=== PATIENT | female | born 1965 | race Caucasian/White ===

== ENCOUNTER 2016-12-04 17:43 | Emergency (ER) | payer MEDICAID ==
[2016-12-04 18:21] LABS: BILIRUBIN,URINE NEGATIVE (NEGATIVE)
[2016-12-04 18:24] LABS: HCG UR QUAL NEGATIVE; UA CHARGE (STRIP ONLY) YES; UR CULTURE IF IND NOT INDICATED
--- NOTE | 2016-12-04 18:30 | ED Physician Documentation ---
PD HPI ABD PAIN - Stated complaint Stated Complaint: ABD/BACK PX - Chief complaint Chief Complaint: Abd Pain - History obtained from History obtained from: Patient - History of Present Illness Timing - onset: Other (Long standing epigastric pain worse p eating, worse in the last 3 weeks. Increased with greasy foods. 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, Tubal ligation - Present Medications Home Medications: Ambulatory Orders Medication Instructions Recorded Confirmed Levothyroxine Sodium [Levoxyl] 175 mcg PO DAILY 01/12/14 12/04/16 Omeprazole [PriLOSEC] 20 mg PO DAILY 01/12/14 12/04/16 amLODIPine [Norvasc] 10 mg PO DAILY 12/04/16 12/04/16 - Allergies Allergies/Adverse Reactions: Allergies Allergy/AdvReac Type Severity Reaction Status Date / Time varenicline tartrate * Allergy Unknown Verified 12/04/16 17:49 [From Chantix] - Social History Does the pt smoke?: Yes Smoking Status: Current every day smoker Does the pt drink ETOH?: No Does the pt have substance abuse?: No - Family History Family history: reports: Non contributory - Immunizations Immunizations are current?: Yes - POLST Patient has POLST: No PD ED PE NORMAL - Vitals Vital signs reviewed: Yes - General General: Alert and oriented X 3, No acute distress - HEENT HEENT: PERRL, EOMI - Neck Neck: Supple, no meningeal sign, No bony TTP - Cardiac Cardiac: RRR, No murmur - Respiratory Respiratory: No respiratory distress, Clear bilaterally - Abdomen Abdomen: Soft, Other (Mild RUQ TTP, equivocal murphys) - Back Back: No CVA TTP, No spinal TTP - Derm Derm: Normal color, Warm and dry - Extremities Extremities: No edema, No calf tenderness / cord - Neuro Neuro: Alert and oriented X 3, Normal speech - Psych Psych: Normal mood, Normal affect Results - Vitals Vitals: Vital Signs - 24 hr 12/04/16 12/04/16 17:46 19:15 Temperature 36.9 C Heart Rate 80 78 Respiratory 20 18 Rate Blood Pressure 136/94 H 148/72 H O2 Saturation 98 97 Oxygen O2 Source Room air - Labs Labs: Laboratory Tests 12/04/16 12/04/16 12/04/16 17:59 18:57 18:57 WBC 9.8 RBC 4.87 Hgb 15.2 Hct 44.3 MCV 90.8 MCH 31.2 H MCHC 34.3 RDW 14.4 Plt Count 256 MPV 7.8 L Neut # 6.3 Lymph # 2.7 [place] # 0.6 Eos # 0.1 Baso # 0.1 Absolute Nucleated RBC 0.00 Nucleated RBCs 0.0 Sodium 139 Potassium 3.9 Chloride 105 Carbon Dioxide 28 Anion Gap 6.0 BUN 7 Creatinine 0.6 Estimated GFR (MDRD) 106 Glucose 95 Calcium 9.5 Total Bilirubin 0.6 AST 17 ALT 11 Alkaline Phosphatase 76 Total Protein 7.6 Albumin 4.4 Globulin 3.2 Albumin/Globulin Ratio 1.4 Lipase 32 Urine Color YELLOW Urine Clarity CLEAR Urine pH 6.0 Ur Specific Duarte 1.010 Urine Protein NEGATIVE Urine Glucose (UA) NEGATIVE Urine Ketones NEGATIVE Urine Occult Blood NEGATIVE Urine Nitrite NEGATIVE Urine Bilirubin NEGATIVE Urine Urobilinogen 0.2 (NORMAL) Ur Leukocyte Esterase NEGATIVE Ur Microscopic Review NOT INDICATED Urine Culture Comments NOT INDICATED Urine HCG, Qual NEGATIVE PD MEDICAL DECISION MAKING - ED course ED course: 51-year-old woman with almost chronic right upper quadrant [place] epigastric pain consistent with either gastritis or biliary colic, she does have a single gallstone on ultrasound with no evidence of cholecystitis. Surgical follow-up was advised. Departure - Departure Disposition: 01 Home, Self Care Clinical Impression: Biliary colic Condition: Good Record reviewed to determine appropriate education?: Yes Instructions: ED Gallstone W Biliary Colic Follow-Up: CHUNG HWANG MD [Provider Admit Priv/Credential] - Comments: Your blood pressure was elevated today on check into the emergency department. This does not mean that you have hypertension, it is a common phenomenon to come to the emergency department and have elevated blood pressure. I recommend that she see her primary care physician within the week to have it rechecked when you are feeling better.
[2016-12-04 19:04] LABS: BASOPHILS # (AUTO) 0.1 10^3/uL (0.0-0.1); BASOPHILS % (AUTO) 0.8 %; EOSINOPHILS # (AUTO) 0.1 10^3/uL (0.0-0.7); EOSINOPHILS % (AUTO) 1.2 %; HCT - HEMATOCRIT 44.3 % (37.0-47.0); HGB - HEMOGLOBIN 15.2 g/dL (12.0-16.0); LYMPHOCYTES # (AUTO) 2.7 10^3/uL (1.5-3.5); LYMPHOCYTES % (AUTO) 27.9 %; MEAN CORPUSCULAR HEMOGLOBIN 31.2 pg (27.0-31.0); MEAN CORPUSCULAR HGB CONC 34.3 g/dL (32.0-36.0); MEAN CORPUSCULAR VOLUME 90.8 fL (81.0-99.0); MEAN PLATELET VOLUME 7.8 fL (7.9-10.8); MONOCYTES # (AUTO) 0.6 10^3/uL (0.0-1.0); MONOCYTES % (AUTO) 5.7 %; NEUTROPHILS # (AUTO) 6.3 10^3/uL (1.5-6.6); NEUTROPHILS % (AUTO) 64.4 %; RED BLOOD COUNT 4.87 10^6/uL (4.20-5.40); RED CELL DISTRIBUTION WIDTH 14.4 % (12.0-15.0); UNCORRECTED WHITE BLOOD COUNT 9.8 x10^3/uL; WHITE BLOOD COUNT 9.8 x10^3/uL (4.8-10.8)
[2016-12-04 19:16] VITALS: BP 148/72
[2016-12-04 19:20] LABS: ALBUMIN/GLOBULIN RATIO 1.4 (1.0-2.2); BILIRUBIN,TOTAL 0.6 mg/dL (0.2-1.0); CALCIUM 9.5 mg/dL (8.5-10.3); CREATININE 0.6 mg/dL (0.4-1.0); POTASSIUM 3.9 mmol/L (3.5-5.0); TOTAL PROTEIN 7.6 g/dL (6.7-8.2)
--- NOTE | 2016-12-04 19:23 | Ultrasound Preliminary Report ---
Exam: US Abdomen Limited IMPRESSION: 1. Increasing fatty infiltration liver. 2. Cholelithiasis without evidence of cholecystitis. [facility] SITE ID: [id number]
--- NOTE | 2016-12-04 19:39 | Ultrasound Report ---
EXAM: ABDOMEN ULTRASOUND LIMITED, RIGHT UPPER QUADRANT EXAM DATE: 12/04/2016 06:24 PM. CLINICAL HISTORY: Hepatitis B. Episode of right upper quadrant pain earlier today, now resolved. COMPARISON: 03/12/2016. TECHNIQUE: Real-time scanning was performed with static images obtained. FINDINGS: Liver: Increasing degree of uniform increased echogenicity. No focal mass lesions. 16.7 cm. Main port al vein flow: Hepatopetal. Gallbladder: Gallbladder normal caliber. New 8 mm mobile stone. No gallbladder wall thickness, focal tenderness nor pericholecystic fluid. Biliary System: CBD measures 4.6 mm. No intrahepatic or extrahepatic ductal dilatation. Other: Right kidney measures 11.2 cm in length. No masses nor hydronephrosis. No free fluid. IMPRESSION: 1. Increasing fatty infiltration of the liver. 2. Cholelithiasis without evidence of cholecystitis. [facility] Referring Provider Line: [phone] SITE ID: [id number]
== END 2016-12-04 19:50 | disposition home or self-care (01) ==
LOC: ED 17:43
DX: K80.50 Calculus of bile duct without cholangitis or cholecystitis without obstruction (principal); I10 Essential (primary) hypertension; C73 Malignant neoplasm of thyroid gland; F17.200 Nicotine dependence, unspecified, uncomplicated
CPT/HCPCS: 36415; 76705; 80053; 81001; 81003; 81025; 83690; 85025; 87086; 99283

== ENCOUNTER 2016-12-27 14:35 | Outpatient (CLI) | payer MEDICAID ==
--- NOTE | 2016-12-27 18:02 | XRAY Report ---
FRONTAL CHEST: 12/27/2016 CLINICAL INDICATION: Coronary artery disease, preop. Frontal view of the chest is compared to previous film of 10/30/2013. The cardiac silhouette is with in normal limits. The lungs are clear. No effusion or pneumothorax is present. IMPRESSION: NORMAL CHEST. JOB #: [id number] EXT JOB #:[id number]
== END 2016-12-27 14:36 | disposition home or self-care (01) ==
LOC: DI 14:35
PROVIDERS: ATTEND Nurse Anesthetist, Certified Registered
DX: Z79.899 Other long term (current) drug therapy (principal)
CPT/HCPCS: 71010

== ENCOUNTER 2016-12-31 09:08 | Day surgery (SDC) | payer MEDICAID ==
[~2016-12-31 09:08] MED LIST: ceFAZolin 2 GM/50 ML 50 ML IV ONE
[2016-12-31 09:38] LABS: HCG UR QUAL NEGATIVE
[2016-12-31] MEDS ORDERED: LACTATED RINGERS 1,000 ML IV ONE ×2 (09:39→12:33)
[2016-12-31] MEDS ORDERED: BUPIVACAINE 0.5% PF 30 ML VIAL SUBQ ONE ×2 (12:04→13:02)
[2016-12-31] MEDS ORDERED: LIDOCAINE-MPF 2% 5 ML VIAL IM ONE (12:27)
[2016-12-31] MEDS ORDERED: fentaNYL 100 MCG/2 ML VIAL IVP ONE (12:27)
[2016-12-31] MEDS ORDERED: GLYCOPYRROLATE 1 MG/5 ML VIAL IVP ONE (12:27)
[2016-12-31] MEDS ORDERED: MIDAZOLAM 2 MG/2 ML VIAL IVP ONE (12:27)
[2016-12-31] MEDS ORDERED: PROPOFOL 200 MG/20 ML VIAL IVP ONE (12:27)
[2016-12-31] MEDS ORDERED: SUCCINYLCHOLINE 200 MG/10 ML VIAL IVP ONE (12:27)
[2016-12-31] MEDS ORDERED: DEXAMETHASONE 4 MG/ML VIAL IVP ONE (12:27)
[2016-12-31] MEDS ORDERED: KETOROLAC 30 MG/ML VIAL IVP ONE (12:27)
[2016-12-31] MEDS ORDERED: ROCURONIUM 50 MG/5 ML VIAL IVP ONE (12:27)
[2016-12-31] MEDS ORDERED: NEOSTIGMINE 1 MG/1 ML 10 ML MDV IVP ONE (12:27)
--- NOTE | 2016-12-31 14:17 | OPERATIVE REPORT ---
DATE OF SURGERY: 12/31/2016 00:00:00 TIME: 1315 PREOPERATIVE DIAGNOSES 1. Symptomatic cholelithiasis. 2. Umbilical hernia. 3. Hepatitis B. POSTOPERATIVE DIAGNOSES 1. Symptomatic cholelithiasis. 2. Umbilical hernia. 3. Hepatitis B. NAME OF PROCEDURES: Laparoscopic cholecystectomy with umbilical herniorrhaphy and Ambrocio-Cut liver biops y. SURGEON: Mati Rios MD ANESTHESIA: Last (general endotracheal) plus 30 mL of 0.5% Marcaine. ESTIMATED BLOOD LOSS: 20 mL. FLUIDS: 1200 mL of crystalloid. SPECIMEN REMOVED: Gallbladder and contents, as well as liver biopsy. Both were sent for pathologic ev aluation. DETAILS OF PROCEDURE: After informed consent was obtained detailing the risks of infection, bleeding with all its risks including transfusion, bile duct injury, and , the patient was brought to the operative suite and placed supine on the operating table. The patient received preoperative antibiot ics for prophylaxis against surgical infection. The patient had TEDs and Venodynes placed for prophyl axis against deep venous thrombosis. Philip Last then provided general anesthesia to the patient wi [facility] incident and provided anesthesia care throughout the entirety of the case. The patient was prep ped and draped in the usual standard manner. At this point, a time-in was done that confirmed the pat ient's identity via 3 different identifiers including her name, medical record number, and date . In addition, we confirmed her allergies, medications, and that we had the personnel and equipment r equired to perform the procedure. Ample opportunity was given for anyone to express any concerns that they had regarding the patient or the patient's care. With the agreement of everyone in the room, [facility] operation was allowed to proceed. A standard umbilical incision was made and dissection was carried down to the fascial defect using a combination of sharp dissection with the scalpel, as well as Bovie electrocautery. The hernia sac was excised, but not sent for pathologic evaluation. The fat that was in the hernia was simply discarded after it was transected using Bovie electrocautery. Through the opening was placed the 10/12 mm blun t-tipped balloon-tipped cannula, and the balloon inflated to hold it in place. The abdomen was then i nsufflated using carbon dioxide to a steady pressure of 15 mmHg. Three additional ports were placed, one in the subxiphoid position and 2 in the right subcostal position at the anterior axillary line, a s well as midclavicular line, all under direct vision without incident. The gallbladder was noted to be quite floppy, it was grasped and retracted superiorly and laterally to the right side. The structu res in the triangle of Calot were dissected free. The cystic duct was noted anteriorly and was freed of any sort of adherent tissue. This was doubly clipped proximally and distally and transected. A madhu tograph was taken of this. Photograph was also taken of the gallbladder prior to any surgical dissect ion. The cystic artery was found slightly posterior to the cystic duct. Similarly clipped and transec kobe. The gallbladder was then dissected free from the liver bed using Bovie electrocautery. The gallb ladder fossa was cauterized using Bovie electrocautery for hemostatic control. Under direct vision, t he Endopouch was placed through the umbilical port and the gallbladder was placed into the Endopouch. The pursestring of the Endopouch was pulled tight securing the gallbladder within the Endopouch. A small stab incision was made in the right upper quadrant and a Ambrocio-Cut needle biopsy device was lars chad through this and placed into the liver under direct vision. It had already been tested by me to aime gonzalez that it would work appropriately. This was then fired getting a core of liver, which was instan tly cauterized using Bovie electrocautery. The right upper quadrant was copiously irrigated using war m sterile saline. The effluent did return rather clear. The insufflation was then released and the um bilical port balloon deflated and the port was removed, as was the bag containing the gallbladder. Al l 3 other ports were removed. The fascia at the umbilicus was then approximated using 0 Vicryl suture in a [id number] fashion. Two dadjyp-cp-oeegf sutures were used, thus repairing her umbilical he rnia. The skin at all 4 incisions was approximated using 4-0 Monocryl in a subcuticular fashion. The small stab incision in the right upper quadrant did not require a stitch as it was too small. The ski n was cleaned of its prep and dried. Mastisol and Steri-Strips were applied on all incisions. Dressin gs were applied over this and the patient, having tolerated the procedure well, was extubated and gaston en to recovery room in good and stable condition. JOB #: [id number] [id number] JOB #:[id number]
[2016-12-31 15:38] VITALS: BP 138/78
== END 2016-12-31 09:09 | disposition home or self-care (01) ==
LOC: SDS 09:08
PROVIDERS: ATTEND Surgery
PROC: 0FB00ZX Excision of Liver, Open Approach, Diagnostic (ICD-10-PCS; 2016-12-31)
PROC: 0FT44ZZ Resection of Gallbladder, Percutaneous Endoscopic Approach (ICD-10-PCS; principal; 2016-12-31 10:15)
PROC: 0WQF0ZZ Repair Abdominal Wall, Open Approach (ICD-10-PCS; 2016-12-31 10:15)
DX: K80.10 Calculus of gallbladder with chronic cholecystitis without obstruction (principal); K42.9 Umbilical hernia without obstruction or gangrene; B19.10 Unspecified viral hepatitis B without hepatic coma; K76.0 Fatty (change of) liver, not elsewhere classified; I10 Essential (primary) hypertension; F17.210 Nicotine dependence, cigarettes, uncomplicated; E03.9 Hypothyroidism, unspecified; Z85.850 Personal history of malignant neoplasm of thyroid
CPT/HCPCS: 47100; 47562; 49585; 81025; J0690; J7120

== ENCOUNTER 2017-04-18 08:42 | Outpatient (CLI) | payer MEDICAID ==
[2017-04-18 12:26] LABS: BASOPHILS # (AUTO) 0.1 10^3/uL (0.0-0.1); EOSINOPHILS # (AUTO) 0.2 10^3/uL (0.0-0.7); EOSINOPHILS % (AUTO) 2.2 %; HCT - HEMATOCRIT 43.1 % (37.0-47.0); HGB - HEMOGLOBIN 14.6 g/dL (12.0-16.0); LYMPHOCYTES # (AUTO) 2.2 10^3/uL (1.5-3.5); LYMPHOCYTES % (AUTO) 25.9 %; MEAN CORPUSCULAR HEMOGLOBIN 31.2 pg (27.0-31.0); MEAN CORPUSCULAR HGB CONC 33.8 g/dL (32.0-36.0); MEAN CORPUSCULAR VOLUME 92.3 fL (81.0-99.0); MEAN PLATELET VOLUME 8.4 fL (7.9-10.8); MONOCYTES # (AUTO) 0.4 10^3/uL (0.0-1.0); NEUTROPHILS # (AUTO) 5.5 10^3/uL (1.5-6.6); NEUTROPHILS % (AUTO) 65.9 %; RED BLOOD COUNT 4.67 10^6/uL (4.20-5.40); RED CELL DISTRIBUTION WIDTH 13.9 % (12.0-15.0); UNCORRECTED WHITE BLOOD COUNT 8.3 x10^3/uL; WHITE BLOOD COUNT 8.3 x10^3/uL (4.8-10.8)
[2017-04-18 12:44] LABS: ALBUMIN/GLOBULIN RATIO 1.2 (1.0-2.2); BILIRUBIN,TOTAL 0.6 mg/dL (0.2-1.0); BUN - BLOOD UREA NITROGEN 9 mg/dL (6-20); CALCIUM 9.2 mg/dL (8.5-10.3); CARBON DIOXIDE - CO2 26 mmol/L (21-32); CHLORIDE 106 mmol/L (101-111); CHOL/HDL RATIO 2.8 (<4.4); CHOLESTEROL 170 mg/dL; CREATININE 0.7 mg/dL (0.4-1.0); GFR - MDRD 89 (>89); GLUCOSE 100 mg/dL (70-100); HDL CHOLESTEROL 61 mg/dL; LDL/HDL RATIO 1.4 (<4.4); POTASSIUM 3.7 mmol/L (3.5-5.0); SODIUM 139 mmol/L (135-145); TOTAL PROTEIN 7.3 g/dL (6.7-8.2); TRIGLYCERIDES 107 mg/dL; VLDL CHOLESTEROL 21 mg/dL
== END 2017-04-18 08:43 | disposition home or self-care (01) ==
LOC: LAB.N 08:42
PROVIDERS: ATTEND Physician Assistant Medical
DX: I10 Essential (primary) hypertension (principal); B19.10 Unspecified viral hepatitis B without hepatic coma; D64.9 Anemia, unspecified; E89.0 Postprocedural hypothyroidism; E78.5 Hyperlipidemia, unspecified
CPT/HCPCS: 36415; 80053; 80061; 84443; 85025

== ENCOUNTER 2017-05-07 07:28 | Outpatient (CLI) | payer MEDICAID ==
--- NOTE | 2017-05-07 09:13 | Ultrasound Report ---
EXAM: ABDOMEN ULTRASOUND EXAM DATE: 05/07/2017 07:35 AM. CLINICAL HISTORY: Abdomen pain, history of hiatal hernia, status post lap jacky. COMPARISON: Right upper quadrant ultrasound 12/04/2016. Complete abdominal ultrasound 03/12/2016. TECHNIQUE: Real-time scanning was performed with static images obtained. FINDINGS: Liver: Diffuse increased echogenicity again demonstrated consistent with fatty infiltration. No focal abnormality. Normal size, right lobe length 16.4 cm. Main portal vein flow: Hepatopetal. Gallbladder: Surgically absent. Biliary System: Common bile duct measures 4.3 mm. No intrahepatic or extrahepatic ductal dilatation. Pancreas: Evidence of pancreatic ductal dilatation measuring 4.6 mm. This was not evident on 03/12/20 16. Low-level echoes in the apparent dilated duct could be artifactual in nature although debris or c omplex fluid is not excluded. No other abraham pancreatic abnormality within the visualized portion the pancreas. Kidneys: Right: 10.7 cm longitudinally. Normal. No contour-deforming mass, stones, or hydronephrosis. Left: 10.8 cm longitudinally. 1.5 cm upper pole benign appearing cyst. No contour-deforming mass, sto kim, or hydronephrosis. Spleen: 8.3 cm. Normal in size and echotexture. Aorta and Inferior Vena Cava: Unremarkable. Other: No free fluid demonstrated. IMPRESSION: 1. Evidence of new pancreatic ductal dilatation, as discussed above. Further evaluation by MRI/MRCP i s recommended. Alternatively, pancreatic protocol CT imaging with and without contrast could be perfo rmed. 2. Benign left renal cyst. 3. Fatty infiltration liver redemonstrated. 4. Status post cholecystectomy. VANNESA Referring Provider Line: [phone] SITE ID: [id number]
== END 2017-05-07 07:29 | disposition home or self-care (01) ==
LOC: DI 07:28
PROVIDERS: ATTEND Physician Assistant Medical
DX: R10.9 Unspecified abdominal pain (principal); Z87.19 Personal history of other diseases of the digestive system; Z90.49 Acquired absence of other specified parts of digestive tract; R19.7 Diarrhea, unspecified; N28.1 Cyst of kidney, acquired; K76.0 Fatty (change of) liver, not elsewhere classified
CPT/HCPCS: 76700

== ENCOUNTER 2017-05-14 08:00 | Outpatient (CLI) | payer MEDICAID ==
[2017-05-14 19:17] LABS: AMYLASE 119 U/L (28-100); LIPASE 112 U/L (22-51)
== END 2017-05-14 08:01 | disposition home or self-care (01) ==
LOC: LAB.N 08:00
PROVIDERS: ATTEND Physician Assistant Medical
DX: Z87.19 Personal history of other diseases of the digestive system (principal); R10.11 Right upper quadrant pain; Z90.49 Acquired absence of other specified parts of digestive tract
CPT/HCPCS: 36415; 82150; 83690

== ENCOUNTER 2017-08-08 19:21 | Outpatient (CLI) | payer MEDICAID ==
[2017-08-08 19:35] LABS: BASOPHILS # (AUTO) 0.1 10^3/uL (0.0-0.1); BASOPHILS % (AUTO) 0.7 %; EOSINOPHILS # (AUTO) 0.1 10^3/uL (0.0-0.7); EOSINOPHILS % (AUTO) 1.4 %; HGB - HEMOGLOBIN 14.3 g/dL (12.0-16.0); LYMPHOCYTES # (AUTO) 3.2 10^3/uL (1.5-3.5); LYMPHOCYTES % (AUTO) 31.2 %; MEAN CORPUSCULAR HEMOGLOBIN 30.4 pg (27.0-31.0); MEAN CORPUSCULAR HGB CONC 33.5 g/dL (32.0-36.0); MEAN CORPUSCULAR VOLUME 90.8 fL (81.0-99.0); MEAN PLATELET VOLUME 7.9 fL (7.9-10.8); MONOCYTES # (AUTO) 0.4 10^3/uL (0.0-1.0); MONOCYTES % (AUTO) 4.3 %; NEUTROPHILS # (AUTO) 6.3 10^3/uL (1.5-6.6); NEUTROPHILS % (AUTO) 62.4 %; PLT - PLATELET COUNT 323 10^3/uL (130-450); RED BLOOD COUNT 4.71 10^6/uL (4.20-5.40); RED CELL DISTRIBUTION WIDTH 13.9 % (12.0-15.0); WHITE BLOOD COUNT 10.1 x10^3/uL (4.8-10.8)
[2017-08-08 19:48] LABS: ALBUMIN 4.2 g/dL (3.2-5.5); ALBUMIN/GLOBULIN RATIO 1.2 (1.0-2.2); ALKALINE PHOSPHATASE 77 IU/L (42-121); ALT ALANINE AMINOTRANSFERASE 12 IU/L (10-60); AMYLASE 98 U/L (28-100); AST ASPARTATE AMINOTRANSFERASE 15 IU/L (10-42); BILIRUBIN,TOTAL < 0.2 mg/dL (0.2-1.0); BUN - BLOOD UREA NITROGEN 7 mg/dL (6-20); CALCIUM 9.3 mg/dL (8.5-10.3); CARBON DIOXIDE - CO2 28 mmol/L (21-32); CHLORIDE 102 mmol/L (101-111); CREATININE 0.6 mg/dL (0.4-1.0); GFR - MDRD 106 (>89); GLUCOSE 136 mg/dL (70-100); LIPASE 88 U/L (22-51); SODIUM 139 mmol/L (135-145); TOTAL PROTEIN 7.7 g/dL (6.7-8.2)
== END 2017-08-08 19:22 | disposition home or self-care (01) ==
LOC: LAB 19:21
PROVIDERS: ATTEND Physician Assistant Medical
DX: K85.80 Other acute pancreatitis without necrosis or infection (principal); K86.89 Other specified diseases of pancreas; R10.9 Unspecified abdominal pain
CPT/HCPCS: 36415; 80053; 82150; 83690; 85025

== ENCOUNTER 2017-09-23 08:00 | Outpatient (CLI) | payer MEDICAID ==
[2017-09-23 19:15] LABS: HEMOGLOBIN A1C 0.64 g/dL; HEMOGLOBIN A1C % 5.8 % (4.6-6.2)
== END 2017-09-23 08:01 | disposition home or self-care (01) ==
LOC: LAB.N 08:00
PROVIDERS: ATTEND Physician Assistant Medical
DX: K86.1 Other chronic pancreatitis (principal)
CPT/HCPCS: 36415; 83036

== ENCOUNTER 2017-10-19 11:36 | Emergency (ER) | payer MEDICAID ==
[2017-10-19 12:18] LABS: BASOPHILS # (AUTO) 0.1 10^3/uL (0.0-0.1); BASOPHILS % (AUTO) 0.8 %; EOSINOPHILS # (AUTO) 0.1 10^3/uL (0.0-0.7); EOSINOPHILS % (AUTO) 1.1 %; HGB - HEMOGLOBIN 14.7 g/dL (12.0-16.0); LYMPHOCYTES # (AUTO) 2.1 10^3/uL (1.5-3.5); MEAN CORPUSCULAR HEMOGLOBIN 31.1 pg (27.0-31.0); MEAN CORPUSCULAR HGB CONC 34.6 g/dL (32.0-36.0); MEAN CORPUSCULAR VOLUME 89.8 fL (81.0-99.0); MEAN PLATELET VOLUME 7.6 fL (7.9-10.8); MONOCYTES # (AUTO) 0.4 10^3/uL (0.0-1.0); MONOCYTES % (AUTO) 4.9 %; NEUTROPHILS # (AUTO) 6.1 10^3/uL (1.5-6.6); NEUTROPHILS % (AUTO) 69.2 %; PLT - PLATELET COUNT 293 10^3/uL (130-450); RED BLOOD COUNT 4.74 10^6/uL (4.20-5.40); RED CELL DISTRIBUTION WIDTH 14.1 % (12.0-15.0); WHITE BLOOD COUNT 8.8 x10^3/uL (4.8-10.8)
[2017-10-19 12:31] LABS: ALBUMIN 4.1 g/dL (3.2-5.5); ALBUMIN/GLOBULIN RATIO 1.1 (1.0-2.2); BILIRUBIN,TOTAL 0.7 mg/dL (0.2-1.0); CALCIUM 9.4 mg/dL (8.5-10.3); CREATININE 0.5 mg/dL (0.4-1.0); TOTAL PROTEIN 7.7 g/dL (6.7-8.2)
--- NOTE | 2017-10-19 12:46 | ED Physician Documentation ---
PD HPI ABD PAIN - Stated complaint Stated Complaint: ABD PX - Chief complaint Chief Complaint: Abd Pain - History obtained from History obtained from: Patient - History of Present Illness Timing - onset: How many weeks ago (has had pancreatic pain since CC last fall , and had pancreatic stricture. Had seen GI in [place] with ERCP but no stent or such. Is referred to and has MRCP Saturday and ERCP with hopefully stent next Saturday. Has had increased pain lately for past 1-2 weeks. Was at [facility] ER this past week and she says Lipase was 400s. Was not admitted.) Timing - duration: Weeks, Months Timing - details: Gradual onset, Waxing and waning Quality: Cramping, Aching, Pain Location: RUQ, Epigastric Radiation: Upper back Improved by: No: Eating, Vomiting Worsened by: Eating, Position, Palpation. No: Breathing Associated symptoms: Nausea, Vomiting, Diarrhea. No: Fever, Near syncope / syncope Similar symptoms before: Diagnosis (pancreatitis s/p CCY) Recently seen: Emergency Dept ([facility] several days ago) Review of Systems Constitutional: denies: Fever, Chills, Myalgias Nose: denies: Rhinorrhea / runny nose, Congestion Throat: denies: Sore throat Cardiac: denies: Chest pain / pressure, Palpitations Respiratory: denies: Dyspnea, Cough GI: reports: Abdominal Pain, Nausea, Vomiting, Diarrhea. 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, Tubal ligation - Present Medications Home Medications: Ambulatory Orders Medication Instructions Recorded Confirmed Levothyroxine Sodium [Levoxyl] 125 mcg PO DAILY 01/12/14 12/31/16 amLODIPine [Norvasc] 10 mg PO DAILY 12/04/16 10/19/17 Dicyclomine HCl 10 mg PO QID 10/19/17 10/19/17 Docusate Sodium 100 mg PO DAILY 10/19/17 10/19/17 Famotidine [Pepcid] 20 mg PO ONCE #30 tablet 10/19/17 HYDROcod/ACETAM 5/325 [[place] 5/325] 1 tab PO Q6H PRN #25 tablet 10/19/17 Lidocaine Viscous 2% [Xylocaine 5 ml PO Q4H PRN #1 bottle 10/19/17 Viscous 2%] Ondansetron Odt [Zofran] 4 mg TL Q6H PRN #15 tablet 10/19/17 Ondansetron [Ondansetron Odt] 4 mg PO QID 10/19/17 10/19/17 Senna [Senokot] 8.6 mg PO DAILY 10/19/17 10/19/17 - Allergies Allergies/Adverse Reactions: Allergies Allergy/AdvReac Type Severity Reaction Status Date / Time varenicline tartrate * Allergy Unknown Verified 10/19/17 11:44 [From Chantix] lisinopril AdvReac Intermediate Unknown Verified 10/19/17 11:44 - Social History Does the pt smoke?: Yes Smoking Status: Current every day smoker Does the pt drink ETOH?: No Does the pt have substance abuse?: No - Immunizations Immunizations are current?: Yes - POLST Patient has POLST: No PD ED PE NORMAL - Vitals Vital signs reviewed: Yes - General General: Alert and oriented X 3, Well developed/nourished - HEENT HEENT: Moist mucous membranes, Pharynx benign - Neck Neck: Supple, no meningeal sign, No adenopathy - Cardiac Cardiac: RRR, No murmur - Respiratory Respiratory: Clear bilaterally - Abdomen Abdomen: Normal bowel sounds, Non distended, No organomegaly, Other (tender epigastric area with guarding) - Female Female : Deferred - Rectal Rectal: Deferred - Back Back: No CVA TTP - Derm Derm: Normal color, Warm and dry - Extremities Extremities: No tenderness to palpate, Normal ROM s pain - Neuro Neuro: Alert and oriented X 3, No motor deficit, Normal speech Results - Vitals Vitals: Vital Signs - 24 hr 10/19/17 10/19/17 10/19/17 11:42 12:33 14:46 Temperature 36.5 C 36.7 C 98.6 C H Heart Rate 82 77 67 Respiratory 18 12 12 Rate Blood Pressure 121/83 H 115/87 H 139/87 H O2 Saturation 99 98 100 Oxygen O2 Source Room air - Labs Labs: Laboratory Tests 10/19/17 10/19/17 12:05 12:05 WBC 8.8 RBC 4.74 Hgb 14.7 Hct 42.6 MCV 89.8 MCH 31.1 H MCHC 34.6 RDW 14.1 Plt Count 293 MPV 7.6 L Neut # (Auto) 6.1 Lymph # (Auto) 2.1 [place] # (Auto) 0.4 Eos # (Auto) 0.1 Baso # (Auto) 0.1 Absolute Nucleated RBC 0.00 Nucleated RBC % 0.0 Sodium 139 Potassium 2.9 L Chloride 104 Carbon Dioxide 25 Anion Gap 10.0 BUN 10 Creatinine 0.5 Estimated GFR (MDRD) 131 Glucose 181 H Calcium 9.4 Total Bilirubin 0.7 AST 24 ALT 25 Alkaline Phosphatase 86 Total Protein 7.7 Albumin 4.1 Globulin 3.6 Albumin/Globulin Ratio 1.1 Lipase 82 H PD MEDICAL DECISION MAKING - ED course Complexity details: re-evaluated patient (Pain is down to bseline 5-10/27. She got some redness at the IV site after meds but no general symptoms, so likely local histamine effect of the Morphine. We talked and agreed on combination of meds including some pain meds to take her to her ERCP at in 8 days. I did review her ZAHIRA and had been getting just small Rx of meds from just her primary care and not multiple sources, so seemed reasonable at this point. ), considered differential (her numbers are improved so the pain may be gastric as well. Mild improvement with GI meds. ), d/w patient Departure - Departure Disposition: 01 Home, Self Care Clinical Impression: Upper abdominal pain, Acute on chronic pancreatitis Condition: Stable Record reviewed to determine appropriate education?: Yes Instructions: Abdominal Pain, ED Pancreatitis Follow-Up: Berry Tang PA-C [Primary Care Provider] - Prescriptions: Famotidine [Pepcid] 20 mg PO ONCE #30 tablet HYDROcod/ACETAM 5/325 [[place] 5/325] 1 tab PO Q6H PRN #25 tablet PRN Reason: Pain Lidocaine Viscous 2% [Xylocaine Viscous 2%] 5 ml PO Q4H PRN #1 bottle PRN Reason: Pain Ondansetron Odt [Zofran] 4 mg TL Q6H PRN #15 tablet PRN Reason: Nausea / Vomiting Comments: Drink lots of fluids. Food as tolerated. Your lipase today is lower at 82 than what she said it was last week. Your pain may still be pancreatic pain and inflammation despite a lowering number. However consider whether there may be some stomach irritation as well. He could use famotidine which is an acid reducing medicine antihistamine and does not associate with pancreatitis. Do not use Prilosec or acid reducing medicines of that category. He could do some viscous lidocaine periodically with antacid if that helps with the pain. Ondansetron if needed for nausea. Add Tylenol or hydrocodone 3 times a day if needed for pain. This will obviously not eliminate your pain but should reduce it to a tolerable level. Have your MR CP test done tomorrow as planned and follow-up with the for ERCP next Saturday as planned. Return or follow-up with your primary care in the interim if worsening. Discharge Date/Time: 10/19/17 15:49
[2017-10-19] MEDS ORDERED: KETOROLAC 15 MG/ML VIAL IVP STA (13:07)
[2017-10-19] MEDS ORDERED: SODIUM CHLORIDE 0.9% 1,000 ML IV ONE ×2 (13:07→13:09)
[2017-10-19] MEDS ORDERED: ONDANSETRON 4 MG/2 ML VIAL IVP STA (13:07)
[2017-10-19] MEDS ORDERED: MORPHINE 10 MG/ML VIAL IVP STA (13:07)
[2017-10-19] MEDS ORDERED: FAMOTIDINE 20 MG/50 ML 50 ML IV ONE (13:09)
[2017-10-19] MEDS ORDERED: LIDOCAINE VISCOUS 2% 15 ML UDC MM STA (13:10)
[2017-10-19] MEDS ORDERED: MAG HYDROX/AL HYDROX/SIMETH 30 ML UDC PO STA (13:10)
[2017-10-19] MEDS ORDERED: diphenhydrAMINE INJ 50 MG/ML VIAL IVP STA (14:01)
[2017-10-19 14:47] VITALS: BP 139/87
== END 2017-10-19 15:49 | disposition home or self-care (01) ==
LOC: ED 11:36
DX: R10.11 Right upper quadrant pain (principal); K85.90 Acute pancreatitis without necrosis or infection, unspecified; K86.1 Other chronic pancreatitis; I10 Essential (primary) hypertension; F17.200 Nicotine dependence, unspecified, uncomplicated
CPT/HCPCS: 36415; 80053; 83690; 85025; 96361; 96365; 96375; 99283; 99284; A9270; J1200

== ENCOUNTER 2017-11-12 10:21 | Outpatient (CLI) | payer MEDICAID | END 2017-11-12 10:22 | disposition home or self-care (01) | LOC: LAB 10:21 | PROVIDERS: ATTEND Nurse Practitioner | DX: C25.1 Malignant neoplasm of body of pancreas (principal) | CPT/HCPCS: 36415; 83835 ==

== ENCOUNTER 2018-01-27 15:44 | Outpatient (CLI) | payer MEDICAID ==
[2018-01-27 16:02] LABS: CALCIUM 8.6 mg/dL (8.5-10.3); CREATININE 0.5 mg/dL (0.4-1.0)
== END 2018-01-27 15:45 | disposition home or self-care (01) ==
LOC: LAB 15:44
DX: C34.92 Malignant neoplasm of unspecified part of left bronchus or lung (principal)
CPT/HCPCS: 36415; 80048

== ENCOUNTER 2018-03-04 11:15 | Outpatient (CLI) | payer MEDICAID | END 2018-03-04 11:16 | disposition home or self-care (01) | LOC: LAB 11:15 | PROVIDERS: ATTEND Internal Medicine Medical Oncology | DX: C34.92 Malignant neoplasm of unspecified part of left bronchus or lung (principal) | CPT/HCPCS: 36415; 84132 ==

== ENCOUNTER 2018-04-09 10:38 | Outpatient (CLI) | payer MEDICAID ==
[2018-04-09 11:32] LABS: BASOPHILS % (AUTO) 0.6 %; EOSINOPHILS % (AUTO) 0.1 %; HGB - HEMOGLOBIN 9.2 g/dL (12.0-16.0); LYMPHOCYTES # (AUTO) 0.5 10^3/uL (1.5-3.5); LYMPHOCYTES % (AUTO) 12.5 %; MEAN CORPUSCULAR HEMOGLOBIN 27.1 pg (27.0-31.0); MEAN CORPUSCULAR HGB CONC 33.8 g/dL (32.0-36.0); MEAN CORPUSCULAR VOLUME 80.2 fL (81.0-99.0); MEAN PLATELET VOLUME 6.2 fL (7.9-10.8); MONOCYTES # (AUTO) 0.1 10^3/uL (0.0-1.0); MONOCYTES % (AUTO) 3.3 %; NEUTROPHILS # (AUTO) 3.4 10^3/uL (1.5-6.6); NEUTROPHILS % (AUTO) 83.5 %
[2018-04-09 11:44] LABS: PLT - PLATELET COUNT 800 10^3/uL (130-450)
[2018-04-09 11:47] LABS: PLATELET ESTIMATE, MANUAL INCREASED (>450,000) (NORMAL)
== END 2018-04-09 10:39 | disposition home or self-care (01) ==
LOC: LAB 10:38
PROVIDERS: ATTEND Nurse Practitioner
DX: C34.92 Malignant neoplasm of unspecified part of left bronchus or lung (principal)
CPT/HCPCS: 36415; 85025

== ENCOUNTER 2018-04-22 11:27 | Day surgery (SDC) | payer MEDICAID ==
[2018-04-22 11:49] VITALS: BP 144/94
--- NOTE | 2018-04-22 14:32 | XRAY Report ---
Reason: picc line placement Procedure Date: 04/22/2018 Accession Number: [id number] / [id number] Procedure: XR - Chest for Line Placement CPT Code: FULL RESULT: EXAM: CHEST RADIOGRAPHY EXAM DATE: 04/22/2018 01:55 PM. CLINICAL HISTORY: Picc line placement. COMPARISON: 10/30/2013 3:04 PM. TECHNIQUE: 1 view. FINDINGS: Lungs/Pleura: No focal opacities evident. No pleural effusion. No pneumothorax. Mediastinum: Within exam limitations, the cardiomediastinal contour is normal. Other: There is a left upper extremity PICC line with tip overlying the inferior vena cava located approximately 8 cm inferior to the cavoatrial junction. At time of dictation, follow-up radiograph had been obtained. IMPRESSION: Low lying PICC line with tip inferior vena cava. RAD[facility]
--- NOTE | 2018-04-22 14:32 | XRAY Report ---
Reason: s/p PICC line Procedure Date: 04/22/2018 Accession Number: [id number] / [id number] Procedure: XR - Chest for Line Placement CPT Code: FULL RESULT: EXAM: CHEST RADIOGRAPHY EXAM DATE: 04/22/2018 01:57 PM. CLINICAL HISTORY: S/p PICC line. Repositioning of central line. COMPARISON: CHEST FOR LINE PLACEMENT 04/22/2018 1:55 PM CHEST FOR LINE PLACEMENT 04/22/2018 1:58 PM. TECHNIQUE: 1 view. FINDINGS: Lungs/Pleura: No focal opacities evident. No pleural effusion. No pneumothorax. Mediastinum: Within exam limitations, the cardiomediastinal contour is normal. Other: The left upper extremity PICC line tip overlies cavoatrial junction. IMPRESSION: Left PICC line tip at cavoatrial junction. RADIA
--- NOTE | 2018-04-22 14:33 | XRAY Report ---
Reason: s/p PICC line Procedure Date: 04/22/2018 Accession Number: [id number] / [id number] Procedure: XR - Chest for Line Placement CPT Code: FULL RESULT: EXAM: CHEST RADIOGRAPHY EXAM DATE: 04/22/2018 01:58 PM. CLINICAL HISTORY: Repositioning of PICC line COMPARISON: CHEST FOR LINE PLACEMENT 04/22/2018 1:57 PM. TECHNIQUE: 1 view. FINDINGS: Lungs/Pleura: No focal opacities evident. No pleural effusion. No pneumothorax. Mediastinum: Within exam limitations, the cardiomediastinal contour is normal. Other: The left upper extremity PICC line has been pulled back. The tip overlies the lower SVC. IMPRESSION: Left PICC line tip at lower SVC. RADIA
--- NOTE | 2018-04-22 14:48 | ANESTHESIA PROCEDURE NOTE ---
Anesth Central Line Template - Central Line Other Info/Details: picc line placed for chemothetapy using sterile tecnique with sterile full body drape,mask ,cap, gown and gloves a five slovak picc line was placed in the left arm after preparing the site with chloraprep. The catheter was cut to 48 cm with ten cm pulled back from the entry into the skin. so the catheter has 38 cm in from the skin. the placement was confirmed with a chest x-ray.
== END 2018-04-22 11:28 | disposition home or self-care (01) ==
LOC: SDS 11:27
PROVIDERS: ATTEND Nurse Anesthetist, Certified Registered
PROC: 02HV33Z Insertion of Infusion Device into Superior Vena Cava, Percutaneous Approach (ICD-10-PCS; principal; 2018-04-22 12:30)
DX: C34.90 Malignant neoplasm of unspecified part of unspecified bronchus or lung (principal)
CPT/HCPCS: 36569; C1751; 71045

== ENCOUNTER 2018-09-19 07:46 | Outpatient (CLI) | payer MEDICAID ==
[2018-09-19] MEDS ORDERED: IOVERSOL 320 50 ML VIAL ONE (08:04)
[2018-09-19] MEDS ORDERED: IOVERSOL 320 100 ML VIAL IVP ONE ×2 (08:04→09:09)
[2018-09-19] MEDS ORDERED: IOVERSOL 320 50 ML VIAL PO ONE (09:09)
--- NOTE | 2018-09-20 16:19 | CT Report ---
Reason: LUNG CA, CHEMOTHERAPY Procedure Date: 09/19/2018 Accession Number: [id number] / [id number] Procedure: CT - CHEST W CPT Code: FULL RESULT: EXAM: CT CHEST EXAM DATE: 09/19/2018 09:07 AM. CLINICAL HISTORY: Lung cancer, status post chemotherapy. COMPARISONS: None. TECHNIQUE: Routine helical CT imaging was performed through the chest. IV contrast: 75 cc Optiray 320. Reconstructions: Coronal and sagittal. In accordance with CT protocol optimization, one or more of the following dose reduction techniques were utilized for this exam: automated exposure control, adjustment of mA and/or KV based on patient size, or use of iterative reconstructive technique. FINDINGS: Lungs/Pleura: A solitary ovoid spiculated nodule in the posterior aspect of the left upper lobe abutting the major fissure measures approximately 10 x 18 mm. No other pulmonary nodules identified. No consolidation, effusions or edema. Moderate changes of centrilobular emphysema noted. Mediastinum: No mediastinal mass or adenopathy. A PICC extends into the lower SVC. Bones: Unremarkable. Visualized Abdomen: See separately performed abdominal pelvic CT report. Other: None. IMPRESSION: 1. 10 x 18 mm posterior left upper lobe spiculated nodule concerning for malignancy. 2. No mediastinal mass or adenopathy. RAD[facility]
--- NOTE | 2018-09-20 16:28 | CT Report ---
Reason: LUNG CA, CHEMOTHERAPY Procedure Date: 09/19/2018 Accession Number: [id number] / [id number] Procedure: CT - ABDOMEN W CPT Code: FULL RESULT: EXAM: CT ABDOMEN EXAM DATE: 09/19/2018 09:07 AM. CLINICAL HISTORY: Lung cancer, chemotherapy. COMPARISON: ABDOMEN LIMITED 12/04/2016 6:23 PM ABDOMEN COMPLETE 03/12/2016 9:12 AM. TECHNIQUE: Routine helical CT imaging was performed through the abdomen. IV contrast: OPTI 320 75 ML Enteric contrast: Yes. Reconstruction: Coronal and sagittal. In accordance with CT protocol optimization, one or more of the following dose reduction techniques were utilized for this exam: automated exposure control, adjustment of mA and/or KV based on patient size, or use of iterative reconstructive technique. FINDINGS: Lung Bases: See chest CT report. Liver: A tiny hypodense focus about the posterior right hepatic lobe measures 5 mm, likely a cyst. A tiny cyst of the anterior left hepatic lobe measures 4 mm. Gallbladder/Bile Ducts: The gallbladder is surgically absent. Mild compensatory dilatation of the extrahepatic biliary system measuring up to 8 mm. No obstructing stone or mass. Spleen: Normal. Pancreas: There is diffuse pancreatic ductal dilatation involving the tail and body with the duct measuring up to 5 mm in diameter. An abrupt transition point is noted near the gallbladder neck with a normal caliber proximal pancreatic duct in the pancreatic head. No definable or measurable stone or mass identified however. No evidence for acute pancreatitis. This ductal dilatation appears new since the 03/12/2016 ultrasound. Adrenal Glands: A large hypodense mass involves the right adrenal gland measuring up to 3.1 x 4.8 cm and measures 39 HU in density postcontrast. The left adrenal gland is normal. Kidneys: No calculi or hydronephrosis. Bilateral small simple cysts present. Peritoneal Cavity/Bowel: Oral contrast opacifies much of the small bowel which is a normal appearance. The proximal colon from the cecum through the distal transverse colon is diffusely collapsed. A moderate amount of stool present in the visualized left colon. No adenopathy or free fluid visualized. Vasculature: No aneurysms or other significant abnormality. Bones: No significant abnormality. Other: None. IMPRESSION: 1. New pancreatic ductal dilatation of the body and tail with transition point near the pancreatic neck. No visible stone or mass identified on this study. However, more sensitive evaluation with dedicated pancreatic MRI/MRCP recommended to exclude malignancy. 2. Large hypodense right adrenal mass is indeterminate on single phase imaging and measures up to 4.8 cm. Dedicated adrenal MRI or CT suggested for further characterization. This could represent a benign or malignant lesion. 3. Status post cholecystectomy with compensatory extra hepatic biliary ductal dilatation. 4. Collapsed proximal to mid colon with moderate stool in left colon noted. RADIA
== END 2018-09-19 07:47 | disposition home or self-care (01) ==
LOC: DI 07:46
PROVIDERS: ATTEND Nurse Practitioner Adult Health
DX: C34.32 Malignant neoplasm of lower lobe, left bronchus or lung (principal); K86.89 Other specified diseases of pancreas; E27.9 Disorder of adrenal gland, unspecified; Z90.49 Acquired absence of other specified parts of digestive tract
CPT/HCPCS: 71260; 74160; Q9967

== ENCOUNTER 2018-11-17 08:16 | Outpatient (CLI) | payer MEDICAID ==
[2018-11-17] MEDS ORDERED: IOVERSOL 320 100 ML VIAL IVP ONE ×2 (08:31→10:11)
[2018-11-17] MEDS ORDERED: IOVERSOL 320 50 ML VIAL ONE (08:31)
[2018-11-17] MEDS ORDERED: IOVERSOL 320 50 ML VIAL PO ONE (10:11)
--- NOTE | 2018-11-17 13:45 | CT Report ---
Reason: LUNG CA Procedure Date: 11/17/2018 Accession Number: [id number] / [id number] Procedure: CT - CHEST W CPT Code: FULL RESULT: EXAM: CT CHEST EXAM DATE: 11/17/2018 09:25 AM. CLINICAL HISTORY: LUNG CA. COMPARISONS: 09/19/2018. TECHNIQUE: Routine helical CT imaging was performed through the chest. IV contrast: 100 cc Optiray 320. Oral contrast: Yes. Reconstructions: Coronal and sagittal. In accordance with CT protocol optimization, one or more of the following dose reduction techniques were utilized for this exam: automated exposure control, adjustment of mA and/or KV based on patient size, or use of iterative reconstructive technique. FINDINGS: Lungs/Pleura: Spiculated ovoid left upper lobe mass abutting the major fissure measures approximately 1.6 cm vertical by 1.7 x 1.2 cm axial. No other nodules are seen. Changes of centrilobular emphysema are present. Pulmonary vasculature is normal. No pericardial or pleural effusion. No pneumothorax. Mediastinum: Normal. No adenopathy or masses. The heart and great vessels are normal. Bones: Unremarkable. Other: Left PICC line has advanced since the prior study, now extending into the right atrium. IMPRESSION: 1. Essentially stable left upper lobe spiculated mass compared with 09/19/2018 allowing for technical variation. 2. Interval advancement of the left PICC line, now ending in the right atrium. 3. No mediastinal or hilar adenopathy. RADIA
--- NOTE | 2018-11-17 15:06 | CT Report ---
Reason: LUNG CA Procedure Date: 11/17/2018 Accession Number: [id number] / [id number] Procedure: CT - Abdomen/Pelvis W CPT Code: FULL RESULT: EXAM: CT ABDOMEN AND PELVIS EXAM DATE: 11/17/2018 09:25 AM. CLINICAL HISTORY: LUNG CA. Abnormal pancreas. For follow-up COMPARISONS: 09/19/2018. TECHNIQUE: Routine helical CT imaging was performed through the abdomen and pelvis. IV contrast: 100 cc Optiray 320. Enteric contrast: Yes. Reconstructions: Coronal and sagittal. In accordance with CT protocol optimization, one or more of the following dose reduction techniques were utilized for this exam: automated exposure control, adjustment of mA and/or KV based on patient size, or use of iterative reconstructive technique. FINDINGS: Liver: Subcentimeter low attenuation lesions, likely cysts, 4/10 and 4/20 unchanged. No definite solid mass appreciated Gallbladder/Bile Ducts: Gallbladder surgically absent. Extrahepatic biliary system maximal 8 mm. Spleen: Normal. Pancreas: Diffuse body and tail pancreatic ductal dilatation, slightly increased compared with prior current maximum 6-7 mm. Transition point similar to previous with a normal caliber proximal pancreatic duct. Adrenal Glands: Normal left. Hypodense mass involving the right adrenal measuring approximately 3.9 cm vertical by 4.5 x 2.6 cm axial, slightly smaller than on previous study. Kidneys: Small cysts as before. No masses or hydronephrosis. Peritoneal Cavity/Bowel: No free fluid, free air or adenopathy. No acute inflammatory process. Pelvic Organs: The bladder and pelvic organs are within normal limits. Vasculature: No aneurysms or other significant abnormality. Bones: No significant abnormality. Other: None. IMPRESSION: 1. Slight progression of body and tail pancreatic ductal dilatation with transition point near the pancreatic neck. 2. Large hypodense right adrenal mass similar to minimally smaller than on preceding study. 3. Status post cholecystectomy. 4. Other incidental findings as above. RADIA
== END 2018-11-17 08:17 | disposition home or self-care (01) ==
LOC: DI 08:16
PROVIDERS: ATTEND Internal Medicine Hematology & Oncology
DX: C34.32 Malignant neoplasm of lower lobe, left bronchus or lung (principal); K86.89 Other specified diseases of pancreas; E27.9 Disorder of adrenal gland, unspecified; Z90.49 Acquired absence of other specified parts of digestive tract
CPT/HCPCS: 71260; 74177; Q9967

== ENCOUNTER 2018-11-28 11:56 | Day surgery (SDC) | payer MEDICAID ==
[2018-11-28] MEDS ORDERED: CEFAZOLIN SODIUM IN 0.9 % NACL 2 GM/100 ML BAG IV ONE (12:05)
--- NOTE | 2018-11-28 12:11 | ANESTHESIA ---
Pre-Anesthesia VS, & Labs - Diagnosis Lung/Pancreatic CA - Procedure portacath Height 5 ft 2 in Body Mass Index 22.3 - NPO >8 hours - Is Patient ?: No - Lab Results Lab results reviewed: Yes Home Medications and Allergies Home Medications: Ambulatory Orders Fluticasone [Flonase] 1 sprays PHONG DAILY 11/26/18 Loratadine 10 mg PO DAILY PRN 11/26/18 Potassium Chloride [Klor-Con M20] 20 meq PO BID 11/26/18 Levothyroxine Sodium [Levoxyl] 150 mcg PO DAILY 01/12/14 Senna [Senokot] 8.6 mg PO TID 10/19/17 Morphine ER 15 mg PO TID 05/06/18 Oxycodone HCl 5 mg PO BID 05/06/18 amLODIPine [Norvasc] 10 mg PO DAILY 09/01/18 predniSONE [Deltasone] 10 mg PO DAILY 10/27/18 Fluticasone [Flonase] 1 sprays PHONG DAILY 11/26/18 Loratadine 10 mg PO DAILY PRN 11/26/18 Potassium Chloride [Klor-Con M20] 20 meq PO BID 11/26/18 Allergies/Adverse Reactions: Allergies Allergy/AdvReac Type Severity Reaction Status Date / Time bee venom protein (honey bee) Allergy Anaphylaxis Verified 11/26/18 15:38 varenicline tartrate * Allergy heart Verified 11/26/18 15:37 [From Chantix] racing lisinopril AdvReac Intermediate heart Verified 11/26/18 15:37 racing Anes History & Medical History - Medical History Cardiovascular: reports: Hypertension, High cholesterol Pulmonary: reports: Emphysema, Pneumonia, Shortness of breath, Other Gastrointestinal: reports: GERD, Colon polyps, Pancreatitis, Hepatitis Urinary: reports: Frequency Musculoskeletal: reports: Chronic back pain Endocrine/Autoimmune: reports: HyPOthyroidism Blood Disorders: reports: Anemia Skin: reports: None Smoking Status: Current every day smoker - Surgical History General: Cholecystectomy, Colonoscopy Gynecologic: Dilation and currettage, Tubal ligation Exam General: Alert, Oriented x3, Cooperative Dental: Dentures full Upper Mouth Openin Fingerbreadth Neck Mobility: Normal Mallampati classification: II Thyromental Distance: 4-6 cm Respiratory: Lungs clear, Normal breath sounds Cardiovascular: Regular rate Neurological: Normal speech Mental/Cognitive Status: Alert/Oriented X3 Cognitive Status: Within normal limits Plan Anesthesia Type: General Consent for Procedure(s) Verified and Reviewed: Yes Code Status: Attempt Resuscitation ASA classification: 3-Severe systemic disease Is this case an emergency?: No
[2018-11-28] MEDS ORDERED: LACTATED RINGERS 1,000 ML IV ONE (12:24)
[2018-11-28] MEDS ORDERED: BUPIVACAINE 0.5% PF 30 ML VIAL INFIL ONE ×2 (12:55)
[2018-11-28] MEDS ORDERED: ONDANSETRON 4 MG/2 ML VIAL IVP ONE (13:00)
[2018-11-28] MEDS ORDERED: MIDAZOLAM 2 MG/2 ML VIAL IVP ONE (13:00)
[2018-11-28] MEDS ORDERED: PROPOFOL 200 MG/20 ML VIAL IVP ONE (13:00)
[2018-11-28] MEDS ORDERED: fentaNYL 100 MCG/2 ML VIAL IVP ONE (13:00)
[2018-11-28] MEDS ORDERED: LIDOCAINE-MPF 2% 5 ML VIAL IM ONE (13:00)
[2018-11-28] MEDS ORDERED: HYDROcod/ACETAM 5/325 MG TABLET PO PRN (13:27)
[2018-11-28] MEDS ORDERED: ONDANSETRON 4 MG/2 ML VIAL IVP PRN (13:27)
[2018-11-28] MEDS ORDERED: HYDROmorphone 0.5 MG/0.5 ML SYRINGE IVP PRN (13:27)
--- NOTE | 2018-11-28 13:30 | OPERATIVE REPORT ---
Operative Report - General Procedure Date: 12/05/18 Planned Procedure: Port-A-Cath placement Pre-Op Diagnosis: Metastatic lung and pancreatic cancer Procedure Performed: Port-A-Cath placement in the left subclavian position Post Op Diagnosis: Same - Procedure Note Primary Surgeon: Mati Rios MD Anesthesia Provider: Anoop Montgomery CRNA Anesthesia Technique: General LMA, Local (10 mL of half percent Marcaine) IV Fluids (mL): 500 Estimated Blood Loss (mL): 5 Complications: None - Other Other Information/Narrative: OPERATIVE DESCRIPTION/REPORT: After verbal and written informed consent was obtained detailing the risks of infection, bleeding requiring transfusion with its risks, nerve injury, and , and after I met with the patient confirming the surgery and the site of the surgery, the patient was brought to the operative suite and placed supine on the operating table. Great care was taken to avoid pressure points to prevent pressure necrosis or nerve injury. Monitoring devices were applied along with TEDs and pneumatic compressive stockings (to prevent DVT). The patient received preoperative antibiotics for surgical prophylaxis. Anoop Montgomery CRNA sedated and anesthetized the patient for the entire procedure. The patient was prepped and draped in the usual sterile manner. A "time in" then confirmed that the patient was identified with 3 identifiers (name, date and medical record number), the history and physical was in the chart, the signed consent confirming the procedure was in the chart, the patient was in the correct position, the aforementioned prophylactic measures were in place or given, we had the correct personnel and equipment to complete the procedure and that anesthesia, surgery and nursing were given an opportunity to express any concerns. With the agreement of everyone in the room, we proceeded with the operation. After the subclavian region was anesthetized using % marcaine and the patient placed in Trendelenberg position, an [employer] Smartport kit (Catalog #[id number], Lot #[id number]) was opened. The finder needle was inserted into the subclavian vein taking great care to place it just under the clavicle in order to minimize the risk of pneumothorax. When good venous blood return was obtained, the wire was placed through the needle and into the vein without difficulty. Cardiac irritability confirmed that the catheter was correctly going down towards the heart. Below and lateral to the needle insertion site, the area was anesthetized again using % marcaine and a transverse incision was made just large enough to accommodate the port. This incision was taken down to the fascia using sharp dissection and the area for the port was created using blunt downward dissection. Meticulous hemostasis was obtained using Bovie electrocautery. A knife was inserted along the wire to widen the insertion site and this was further dilated using a Vicki. The port was flushed with heparinized saline and placed in the pouch and the catheter was then passed to the needle opening using the passer. The catheter was then measured against the patients anterior chest and cut so that the tip would lie 2 cm below the manubrial-sternal junction. The port was secured to the fascia using a 3-0 Prolene on the side of the opening of the port. The catheter was then wiped and wrapped with a heparinized soaked 4x4. The dilator and sheath were then carefully inserted over the wire and the dilator and wire withdrawn. The catheter was then inserted into the sheath and the sheath was broken away from the catheter leaving the catheter in place in the vein. An X-ray confirmed placement of the catheter tip in the right atrium without pneumothorax. Using a Hueber needle the port was accessed and good blood return as well as easy flush was noted. The subcutaneous tissue was approximated using 3-0 Vicryl and the skin incisions were approximated with 4-0 Monocryl in a subcuticular fashion. The skin prep was washed off and prepped with benzoin. Steristrips were applied. At this point a time out was performed that confirmed that all the counts were correct, the procedure that was performed, the blood loss, the IV fluids administered, and the patients condition. A dressing was placed on the wound. Having tolerated the procedure well, the patient was taken to short stay in good and stable condition. The patient was instructed that the Portacath could be used immediately. [employer] disclaimer: This document was created in part using voice recognition technology. Because of the inherent limitations of the system ([employer]'s [employer] Dictate user manual states that the licensee understands that speech recognition is a statistical process and that recognition errors are inherent in the process), occasional same sounding word substitutions and grammatical errors do occur and persist despite proofreading. Please read this document for context.
--- NOTE | 2018-11-28 14:18 | XRAY Report ---
Reason: PORT PLACEMENT Procedure Date: 11/28/2018 Accession Number: [id number] / [id number] Procedure: XR - Post Port Placement 1V CXR CPT Code: 09206 FULL RESULT: EXAM: CHEST RADIOGRAPHY EXAM DATE: 11/28/2018 01:31 PM. CLINICAL HISTORY: PORT PLACEMENT. COMPARISON: CHEST FOR LINE PLACEMENT 04/22/2018 1:58 PM. TECHNIQUE: 1 view. FINDINGS: Lungs/Pleura: Mild diffuse interstitial prominence. No localized infiltrate, consolidation, effusion, or pneumothorax. Mediastinum: Within exam limitations, the cardiomediastinal contour is normal. Other: Left central line tip in the atrium about 11.4 cm below level of lynda. Left Port-A-Cath tip in the atrium about 6.7 cm below level of lynda. IMPRESSION: Port-A-Cath and central line tips in atrium. RADIA
[2018-11-28 14:21] VITALS: BP 134/83
== END 2018-11-28 11:57 | disposition home or self-care (01) ==
LOC: SDS 11:56
PROVIDERS: ATTEND Surgery
PROC: 02H633Z Insertion of Infusion Device into Right Atrium, Percutaneous Approach (ICD-10-PCS; 2018-11-28)
PROC: 0JH63WZ Insertion of Totally Implantable Vascular Access Device into Chest Subcutaneous Tissue and Fascia, Percutaneous Approach (ICD-10-PCS; principal; 2018-11-28 13:15)
DX: C25.9 Malignant neoplasm of pancreas, unspecified (principal); C78.02 Secondary malignant neoplasm of left lung; I10 Essential (primary) hypertension; J43.9 Emphysema, unspecified; F17.210 Nicotine dependence, cigarettes, uncomplicated; Z79.899 Other long term (current) drug therapy; Z79.51 Long term (current) use of inhaled steroids; Z79.52 Long term (current) use of systemic steroids; Z86.2 Personal history of diseases of the blood and blood-forming organs and certain disorders involving the immune mechanism
CPT/HCPCS: 36561; C1788; J0690; J7120; 71045

== ENCOUNTER 2019-01-10 19:34 | Outpatient (CLI) | payer MEDICAID | END 2019-01-10 19:35 | disposition critical access hospital (66) | LOC: EMS 19:34 | PROVIDERS: ATTEND Surgery | DX: R56.9 Unspecified convulsions (principal); R53.1 Weakness | CPT/HCPCS: A0425; A0429; A0999 ==

== ENCOUNTER 2019-01-10 19:37 | Emergency (ER) | payer MEDICAID ==
[2019-01-10] MEDS ORDERED: levETIRAcetam INJ 1,000 MG in SODIUM CHLORIDE 0.9% 100ML 100 ML IV STA (20:05)
--- NOTE | 2019-01-10 20:07 | ED Physician Documentation ---
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 She is never had seizures before. Starting tonight she developed right-sided seizures. The boyfriend says she was talking through it. She was shaking her left side a little bit, but from his description I suspect that was reactive to the right side. On my initial evaluation I was called into the room because she is having a focal right-sided seizure of arm and leg. Status post that she was unable to move the right leg. She is able to talk and control the left side of her body through it.) Review of Systems Ten Systems: 10 systems reviewed and negative Constitutional: denies: Fever, Chills Cardiac: reports: Reviewed and negative Respiratory: reports: Reviewed and negative GI: denies: Abdominal Pain, Nausea, Vomiting PD PAST MEDICAL HISTORY - Past Medical History Cardiovascular: Hypertension, High cholesterol Respiratory: Emphysema, Pneumonia, Shortness of breath, Other Endocrine/Autoimmune: HyPOthyroidism GI: GERD, Colon polyps, Pancreatitis, Hepatitis SCRAP PICKER: None : Frequency HEENT: Other Psych: None Musculoskeletal: Chronic back pain Derm: None - Past Surgical History Past Surgical History: Yes General: Cholecystectomy, Colonoscopy /SCRAP PICKER: Dilation and currettage, Tubal ligation - Present Medications Home Medications: Ambulatory Orders Medication Instructions Recorded Confirmed Levothyroxine Sodium [Levoxyl] 150 mcg PO DAILY 01/12/14 01/10/19 Senna [Senokot] 8.6 mg PO TID 10/19/17 01/10/19 Morphine ER 15 mg PO TID 05/06/18 01/10/19 Oxycodone HCl 5 mg PO BID 05/06/18 01/10/19 Dicyclomine HCl 10 mg PO QID 30 Days #120 capsule 07/25/18 01/10/19 Ondansetron Odt [Zofran Odt] 4 mg TL Q4H PRN 30 Days #60 tablet 07/25/18 01/10/19 amLODIPine [Norvasc] 10 mg PO DAILY 09/01/18 01/10/19 predniSONE [Deltasone] 5 mg PO DAILY 10/27/18 01/10/19 Fluticasone [Flonase] 1 sprays PHONG DAILY 11/26/18 01/10/19 Loratadine 10 mg PO DAILY PRN 11/26/18 01/10/19 Potassium Chloride [Klor-Con M20] 20 meq PO BID 11/26/18 01/10/19 HYDROcod/ACETAM 5/325 [[place] 5/325] 1 each PO Q4H #5 tablet 11/28/18 01/10/19 - Allergies Allergies/Adverse Reactions: Allergies Allergy/AdvReac Type Severity Reaction Status Date / Time bee venom protein (honey bee) Allergy Anaphylaxis Verified 01/10/19 19:44 varenicline tartrate * Allergy heart Verified 01/10/19 19:44 [From Chantix] racing lisinopril AdvReac Intermediate heart Verified 01/10/19 19:44 racing - Social History Does the pt smoke?: Yes Smoking Status: Current every day smoker Does the pt drink ETOH?: No Does the pt have substance abuse?: No - Immunizations Immunizations are current?: Yes - POLST Patient has POLST: No PD ED PE NORMAL - Vitals Vital signs reviewed: Yes - General General: Alert and oriented X 3, Other (On initial evaluation she is seizing. She can talk and follow commands on the left side of the body but is having tonic-clonic motions of the right arm and leg. Subsequent to that she had weakness especially in the right leg without numbness.) - HEENT HEENT: PERRL, EOMI - Neck Neck: Supple, no meningeal sign, No bony TTP - Cardiac Cardiac: RRR, No murmur - Respiratory Respiratory: No respiratory distress, Clear bilaterally - Abdomen Abdomen: Non tender - Derm Derm: Normal color, Warm and dry - Neuro Neuro: Alert and oriented X 3, Normal speech - Psych Psych: Normal mood, Normal affect Results - Vitals Vitals: Vital Signs - 24 hr 01/10/19 01/10/19 01/10/19 19:40 21:39 21:52 Temperature 36.5 C 37.0 C Heart Rate 108 H 94 134 H Respiratory 14 22 28 H Rate Blood Pressure 138/94 H 126/86 H 126/86 H O2 Saturation 99 97 96 01/10/19 22:13 Temperature Heart Rate 98 Respiratory 19 Rate Blood Pressure 121/84 H O2 Saturation 95 Oxygen O2 Source Room air - Labs Labs: Laboratory Tests 01/10/19 01/10/19 20:15 20:15 WBC 4.9 RBC 2.96 L Hgb 10.4 L Hct 31.0 L MCV 104.7 H MCH 35.1 H MCHC 33.5 RDW 15.0 Plt Count 99 L MPV 10.3 Neut # (Auto) 3.6 Lymph # (Auto) 1.0 L Tripp # (Auto) 0.3 Eos # (Auto) 0.0 Baso # (Auto) 0.0 Absolute Nucleated RBC 0.00 Nucleated RBC % 0.0 Sodium 137 Potassium 3.3 L Chloride 102 Carbon Dioxide 17 L Anion Gap 18.0 H BUN 14 Creatinine 0.7 Estimated GFR (MDRD) 88 L Glucose 178 H Calcium 8.8 Total Bilirubin 0.9 AST 29 ALT 19 Alkaline Phosphatase 71 Total Protein 6.6 L Albumin 3.7 Globulin 2.9 Albumin/Globulin Ratio 1.3 Lipase 19 L - Rads (name of study) CT Head w and w/o contrast Radiology: EMP read contemporaneously (1. There are at least 3 intracranial rim- enhancing lesion seen concerning for intracranial metastasis involving the anterior superior right cerebellum, right occipital lobe, and superior left frontal gyrus, as detailed above. There is surrounding edema with local mass-effect but no midline shift. ) PD MEDICAL DECISION MAKING - ED course ED course: This is a 53-year-old woman with new onset focal seizure on the right, given her underlying history of cancer metastatic disease was strongly suspected and proven on CT. She was loaded with Keppra and Ativan. Given the nature of the diagnosis she will need to be likely radiation therapy and she was accepted to [facility] by Dr. Zaidi at 2218 and cobras were completed. She is stable for transport. Departure - Departure Disposition: 02 Transfer Acute Care Hosp Clinical Impression: Brain metastases, Seizure Condition: Serious
[2019-01-10] MEDS ORDERED: LORazepam 2 MG/ML VIAL ONE (20:11)
[2019-01-10 20:24] LABS: BASOPHILS % (AUTO) 0.6 %; EOSINOPHILS % (AUTO) 0.4 %; HGB - HEMOGLOBIN 10.4 g/dL (12.0-16.0); MEAN CORPUSCULAR HEMOGLOBIN 35.1 pg (27.0-31.0); MEAN CORPUSCULAR HGB CONC 33.5 g/dL (32.0-36.0); MEAN CORPUSCULAR VOLUME 104.7 fL (81.0-99.0); MEAN PLATELET VOLUME 10.3 fL (7.9-10.8); MONOCYTES # (AUTO) 0.3 10^3/uL (0.0-1.0); MONOCYTES % (AUTO) 5.1 %; NEUTROPHILS # (AUTO) 3.6 10^3/uL (1.5-6.6); NEUTROPHILS % (AUTO) 72.7 %; PLT - PLATELET COUNT 99 10^3/uL (130-450); RED BLOOD COUNT 2.96 10^6/uL (4.20-5.40); WHITE BLOOD COUNT 4.9 x10^3/uL (4.8-10.8)
[2019-01-10 20:33] LABS: ALBUMIN 3.7 g/dL (3.2-5.5); ALBUMIN/GLOBULIN RATIO 1.3 (1.0-2.2); BILIRUBIN,TOTAL 0.9 mg/dL (0.2-1.0); CALCIUM 8.8 mg/dL (8.5-10.3); CREATININE 0.7 mg/dL (0.4-1.0); TOTAL PROTEIN 6.6 g/dL (6.7-8.2)
[2019-01-10] MEDS ORDERED: IOVERSOL 320 100 ML VIAL IVP ONE ×2 (20:57→21:30)
[2019-01-10] MEDS ORDERED: DEXAMETHASONE 10 MG/ML VIAL IVP STA (21:17)
--- NOTE | 2019-01-10 21:50 | CT Report ---
Reason: new onset R focal szs Procedure Date: 01/10/2019 Accession Number: [id number] / [id number] Procedure: CT - HEAD W/WO CPT Code: FULL RESULT: EXAM: CT HEAD WITH AND WITHOUT CONTRAST EXAM DATE: 01/10/2019 09:10 PM. CLINICAL HISTORY: 53-year-old with history of pancreatic and lung cancer with recent new onset right-sided seizure-like activity. Evaluate for intracranial pathology. COMPARISON: None. TECHNIQUE: Multiaxial CT images were obtained from the foramen magnum to the vertex prior to and after contrast administration. Reformats: Sagittal and coronal. IV contrast: 100 mL Optiray 320. In accordance with CT protocol optimization, one or more of the following dose reduction techniques were utilized for this exam: automated exposure control, adjustment of mA and/or KV based on patient size, or use of iterative reconstructive technique. FINDINGS: Parenchyma: There are rim-enhancing lesions seen involving the brain parenchyma includin. Anterior superior right cerebellum measuring 12 x 11 x 10 mm (CC by TR by AP). There is mild surrounding edema with local mass effect but no midline shift. 2. Left superior frontal gyrus measuring 16 x 16 x 17 mm (CC by TR by AP). There is moderate vasogenic edema seen extending into the left frontal lobe with local mass effect but no midline shift. 3. Right occipital lobe measuring 7 x 9 x 7 mm (CC by TR by AP). There is mild to moderate vasogenic edema. There is local mass effect but no midline shift. No acute intracranial hemorrhage or midline shift. There is no convincing CT evidence of acute infarct. Extraaxial Spaces: Normal for age. No subdural or epidural collections identified. Ventricles: Normal in size and position. Sinuses and Orbits: Imaged paranasal sinuses, orbits, and mastoids show no significant abnormality. Bones: No evidence of fracture or calvarial defect. Other: None. IMPRESSION: 1. There are at least 3 intracranial rim-enhancing lesions seen concerning for intracranial metastasis involving the anterior superior right cerebellum, right occipital lobe, and superior left frontal gyrus, as detailed above. There is surrounding edema with local mass effect but no midline shift. Consider MR brain with and without contrast for further evaluation. 2. No acute infarct or acute intracranial hemorrhage. RADIA The call report notification system was initiated by Dr. Jareth Nixon at 09:49 PM on 01/10/2019. The above call report findings were discussed with Nayan Ortega by Dr. Jareth Nixon at 09:53 PM on 01/10/2019.
[2019-01-10] MEDS ORDERED: LORazepam 2 MG/ML VIAL IVP STA (21:55)
[2019-01-10] MEDS ORDERED: MORPHINE ER 15 MG TABLET PO STA (22:44)
[2019-01-10 23:46] VITALS: BP 112/82
== END 2019-01-10 23:45 | disposition short-term general hospital (02) ==
LOC: EDUNIT# → ED 19:37
DX: R56.9 Unspecified convulsions (principal); C79.31 Secondary malignant neoplasm of brain; C34.92 Malignant neoplasm of unspecified part of left bronchus or lung; C79.01 Secondary malignant neoplasm of right kidney and renal pelvis; I10 Essential (primary) hypertension; F17.200 Nicotine dependence, unspecified, uncomplicated; Z79.899 Other long term (current) drug therapy
CPT/HCPCS: 36415; 70470; 80053; 83690; 85025; 96365; 96375; 99285; A9270; J2060; Q9967

== ENCOUNTER 2019-01-18 03:18 | Emergency (ER) | payer MEDICAID ==
[2019-01-18] MEDS ORDERED: SULFAMETH/TRIMETH DS 800/160 MG TABLET PO STA (04:07)
--- NOTE | 2019-01-18 04:12 | ED Physician Documentation ---
PD HPI SKIN - Stated complaint Stated Complaint: PORT LEAKING/ARM PX - Chief complaint Chief Complaint: Wound - History obtained from History obtained from: Patient, Family - History of Present Illness Timing - onset: Today Timing - duration: Hours Timing - details: Abrupt onset, Still present in ED Location: Chest Quality / character: Draining Associated symptoms: No: Fever, Myalgias, Joint pain, Headache, Facial swelling, Dyspnea, Abd pain, N/V/D, Urinary sx Contributing factors: Other (port has been infected around a suture site) Similar symptoms before: Diagnosis (viviane-port infection) Recently seen: Clinic - Additional information Additional information: 53-year-old female who is undergoing treatment for pancreatic cancer with metastases to the kidney and brain as well as cancer in her lung has a port in place. Her port had an infection to 1 of the sutures and she was placed on Levaquin this improved and she has been able to use the port again. Tonight she was having some pain in her left shoulder and used an ice bag over it when she noted that there was some drainage from the viviane-port area. She states that she does not feel ill otherwise and that her drainage is now controlled. She is not having tenderness to the area. Review of Systems Constitutional: denies: Fever Eyes: denies: Decreased vision Ears: denies: Ear pain Nose: denies: Congestion Throat: denies: Sore throat Cardiac: denies: Chest pain / pressure Respiratory: denies: Dyspnea, Cough GI: denies: Vomiting PD PAST MEDICAL HISTORY - Past Medical History Past Medical History: Yes Cardiovascular: Hypertension, High cholesterol Respiratory: Emphysema, Pneumonia, Shortness of breath, Other Endocrine/Autoimmune: HyPOthyroidism GI: GERD, Colon polyps, Pancreatitis, Hepatitis TRACTOR MECHANIC: None : Frequency HEENT: Other Psych: None Musculoskeletal: Chronic back pain Derm: None - Past Surgical History Past Surgical History: Yes General: Cholecystectomy, Colonoscopy /TRACTOR MECHANIC: Dilation and currettage, Tubal ligation - Present Medications Home Medications: Ambulatory Orders Medication Instructions Recorded Confirmed Levothyroxine Sodium [Levoxyl] 150 mcg PO DAILY 01/12/14 01/10/19 Senna [Senokot] 8.6 mg PO TID 10/19/17 01/10/19 RX: Morphine ER 15 mg PO TID 05/06/18 01/10/19 RX: Oxycodone HCl 5 mg PO BID 05/06/18 01/10/19 RX: Dicyclomine HCl 10 mg PO QID 30 Days #120 capsule 07/25/18 01/10/19 RX: Ondansetron Odt [Zofran Odt] 4 mg TL Q4H PRN 30 Days #60 tablet 07/25/18 01/10/19 amLODIPine [Norvasc] 10 mg PO DAILY 09/01/18 01/10/19 RX: predniSONE [Deltasone] 5 mg PO DAILY 10/27/18 01/10/19 Fluticasone [Flonase] 1 sprays PHONG DAILY 11/26/18 01/10/19 RX: Loratadine 10 mg PO DAILY PRN 11/26/18 01/10/19 RX: Potassium Chloride [Klor-Con 20 meq PO BID 11/26/18 01/10/19 M20] HYDROcod/ACETAM 5/325 [[place] 5/325] 1 each PO Q4H #5 tablet 11/28/18 01/10/19 Sulfamethoxazole/Trimethoprim 1 each PO BID #14 tablet 01/18/19 [Sulfamethoxazole-Tmp Ds Tablet] - Allergies Allergies/Adverse Reactions: Allergies Allergy/AdvReac Type Severity Reaction Status Date / Time bee venom protein (honey bee) Allergy Anaphylaxis Verified 01/10/19 19:44 varenicline tartrate * Allergy heart Verified 01/10/19 19:44 [From Chantix] racing lisinopril AdvReac Intermediate heart Verified 01/10/19 19:44 racing - Social History Does the pt smoke?: Yes Smoking Status: Current every day smoker Does the pt drink ETOH?: No Does the pt have substance abuse?: No - Immunizations Immunizations are current?: Yes - POLST Patient has POLST: No PD ED PE NORMAL - Vitals Vital signs reviewed: Yes (tachy ) - General General: Alert and oriented X 3, No acute distress, Well developed/nourished, Other (talkative and happy) - HEENT HEENT: Atraumatic, PERRL, EOMI - Neck Neck: Supple, no meningeal sign - Respiratory Respiratory: No respiratory distress, Other (on the anterior chest on the left side below the clavicle is a port. There is minimal inflamation around it and an area over the lateral aspect of the port has skin breakdown and a yellow base. This is cultured and with the Q-tip the yellow is removed and the edge of the port is visible below the skin. There is a hole in the skin about 4mm in size. There is minimal surrounding inflamation and no fluctuance or mass. ) - Derm Derm: Normal color, Warm and dry - Extremities Extremities: No deformity, No edema - Neuro Neuro: Alert and oriented X 3, outpatient program coordinator 2-12 intact, No motor deficit, No sensory deficit, Normal speech Eye Opening: Spontaneous Motor: Obeys Commands Verbal: Oriented GCS Score: 15 - Psych Psych: Normal mood, Normal affect Results - Vitals Vitals: Vital Signs - 24 hr 01/18/19 01/18/19 03:22 04:28 Temperature 36.8 C 36.7 C Heart Rate 112 H 80 Respiratory 16 17 Rate Blood Pressure 111/63 146/82 H O2 Saturation 94 99 Oxygen O2 Source Room air PD MEDICAL DECISION MAKING - ED course Complexity details: considered differential, d/w patient ED course: 53-year-old female with an infection in the skin surrounding her port where a stitch was and not directly in the port. It is to the side of the port and the edge of the port is visible. Patient is instructed to use a warm compress and to encourage any drainage and we will place her on some Septra. She is given a dose here in the emergency department. She will not use the port currently. Departure - Departure Disposition: 01 Home, Self Care Clinical Impression: Abscess of chest wall Condition: Stable Instructions: ED Staph Infec Abx Tx Only Follow-Up: Berry Tang PA-C [Primary Care Provider] - Prescriptions: Sulfamethoxazole/Trimethoprim [Sulfamethoxazole-Tmp Ds Tablet] 1 each PO BID #14 tablet Comments: Today it appears there is skin breakdown and infection to the side of the port and recommendation is to not use the port at this time to encourage any drainage from the area and take the Septra. Discharge Date/Time: 01/18/19 04:31
[2019-01-18 04:30] VITALS: BP 146/82
== END 2019-01-18 04:31 | disposition home or self-care (01) ==
LOC: ED 03:18
DX: L02.213 Cutaneous abscess of chest wall (principal); M25.512 Pain in left shoulder; C25.9 Malignant neoplasm of pancreas, unspecified; C78.00 Secondary malignant neoplasm of unspecified lung; C79.00 Secondary malignant neoplasm of unspecified kidney and renal pelvis; C79.31 Secondary malignant neoplasm of brain; I10 Essential (primary) hypertension; F17.200 Nicotine dependence, unspecified, uncomplicated
CPT/HCPCS: 87070; 87181; 87205; 99283; 99284; A9270

== ENCOUNTER 2019-01-26 18:48 | Emergency (ER) | payer MEDICAID ==
[2019-01-26 19:41] VITALS: BP 152/107
--- NOTE | 2019-01-26 20:17 | ED Physician Documentation ---
PD HPI UPPER EXT INJURY - Stated complaint Stated Complaint: LEFT HAND BRUISING - Chief complaint Chief Complaint: Ext Problem - History obtained from History obtained from: Patient - History of Present Illness Location: Left, Hand Type of injury: No: Fall, Twist Where injury occurred: Home Timing - onset: Today Timing - details: Abrupt onset, Still present Worsened by: No: Moving, Palpating Associated symptoms: Discolored (developed bruising on back of hand without apparent injury. Had had an IV at that site a week ago. Had healed okay without redness nor tenderness.). No: Weakness, Numbness, Swelling Contributing factors: Anticoagulated. No: Prior ortho surgery Similar symptoms before: Has not had sx before Recently seen: Emergency Dept (had an IV for medication on back of hand a week ago. No problems at the time of it.) Review of Systems Constitutional: denies: Fever, Chills Skin: denies: Rash, Abrasion (s), Laceration (s) Neurologic: denies: Focal weakness, Numbness PD PAST MEDICAL HISTORY - Past Medical History Cardiovascular: Hypertension, High cholesterol Respiratory: Emphysema, Pneumonia, Shortness of breath, Other Endocrine/Autoimmune: HyPOthyroidism GI: GERD, Colon polyps, Pancreatitis, Hepatitis SPRINKLER INSPECTOR: None : Frequency HEENT: Other Psych: None Musculoskeletal: Chronic back pain Derm: None - Past Surgical History Past Surgical History: Yes General: Cholecystectomy, Colonoscopy /SPRINKLER INSPECTOR: Dilation and currettage, Tubal ligation - Present Medications Home Medications: Ambulatory Orders Medication Instructions Recorded Confirmed Levothyroxine Sodium [Levoxyl] 150 mcg PO DAILY 01/12/14 01/10/19 Senna [Senokot] 8.6 mg PO TID 10/19/17 01/10/19 RX: Morphine ER 15 mg PO TID 05/06/18 01/10/19 RX: Oxycodone HCl 5 mg PO BID 05/06/18 01/10/19 RX: Dicyclomine HCl 10 mg PO QID 30 Days #120 capsule 07/25/18 01/10/19 RX: Ondansetron Odt [Zofran Odt] 4 mg TL Q4H PRN 30 Days #60 tablet 07/25/18 01/10/19 amLODIPine [Norvasc] 10 mg PO DAILY 09/01/18 01/10/19 RX: predniSONE [Deltasone] 5 mg PO DAILY 10/27/18 01/10/19 Fluticasone [Flonase] 1 sprays PHONG DAILY 11/26/18 01/10/19 RX: Loratadine 10 mg PO DAILY PRN 11/26/18 01/10/19 RX: Potassium Chloride [Klor-Con 20 meq PO BID 11/26/18 01/10/19 M20] HYDROcod/ACETAM 5/325 [[place] 5/325] 1 each PO Q4H #5 tablet 11/28/18 01/10/19 Sulfamethoxazole/Trimethoprim 1 each PO BID #14 tablet 01/18/19 [Sulfamethoxazole-Tmp Ds Tablet] - Allergies Allergies/Adverse Reactions: Allergies Allergy/AdvReac Type Severity Reaction Status Date / Time bee venom protein (honey bee) Allergy Anaphylaxis Verified 01/26/19 19:41 varenicline tartrate * Allergy heart Verified 01/26/19 19:41 [From Chantix] racing lisinopril AdvReac Intermediate heart Verified 01/26/19 19:41 racing - Social History Does the pt smoke?: Yes Smoking Status: Current every day smoker Does the pt drink ETOH?: No Does the pt have substance abuse?: No - Immunizations Immunizations are current?: Yes - POLST Patient has POLST: No PD ED PE NORMAL - Vitals Vital signs reviewed: Yes - General General: Alert and oriented X 3, No acute distress, Well developed/nourished - Derm Derm: Normal color, Warm and dry - Extremities Extremities: Other (Dorsum of the left hand has some purple bruising under the skin. There is no edema noted. There is no local tenderness. There is no redness nor purulence. The forearm and upper arm do not have any edema nor t enderness in the muscles. She has good color and capillary refill as well as movement of her fingers.) - Neuro Neuro: No motor deficit, No sensory deficit Results - Vitals Vitals: Oxygen O2 Source Room air - Labs Labs: Laboratory Tests 01/26/19 01/26/19 01/26/19 20:28 20:28 20:28 WBC 7.7 RBC 3.47 L Hgb 12.2 Hct 34.3 L MCV 98.8 MCH 35.2 H MCHC 35.6 RDW 15.0 Plt Count 65 L MPV 9.2 Neut # (Auto) 6.8 H Lymph # (Auto) 0.2 L [place] # (Auto) 0.2 Eos # (Auto) 0.0 Baso # (Auto) 0.1 Absolute Nucleated RBC 0.00 Nucleated RBC % 0.0 PT 11.5 INR 1.0 Sodium 128 L Potassium 3.7 Chloride 91 L Carbon Dioxide 27 Anion Gap 10.0 BUN 19 Creatinine 0.5 Estimated GFR (MDRD) 130 Glucose 397 H Calcium 8.9 Total Bilirubin 0.7 AST 24 ALT 49 Alkaline Phosphatase 91 Total Protein 6.9 Albumin 3.5 Globulin 3.4 Albumin/Globulin Ratio 1.0 Lipase 21 L PD MEDICAL DECISION MAKING - ED course Complexity details: considered differential (Presume some transient bleeding from a subcutaneous vein on the dorsum of the hand. There is no signs of DVT nor phlebitis. There is no signs of infection. She had had an IV there recently so presumably dislodged a small clot and had some bleeding. No intervention needed at this time.), d/w patient Departure - Departure Disposition: 01 Home, Self Care Clinical Impression: Traumatic ecchymosis of left hand, Thrombocytopenia Condition: Stable Record reviewed to determine appropriate education?: Yes Instructions: ED Contusion Hand Follow-Up: Berry Tang PA-C [Primary Care Provider] - Comments: Your platelet count is low but not low enough to need transfusion or extra. Follow-up with your primary care regarding this or your oncologist. I presume there was some mild injury to the hand that popped a small blood vessel. This does not look dangerous or bad. There is no clinical indication of a deep vein clotting but just a surface vein on the top of the hand. Discharge Date/Time: 01/26/19 21:19
[2019-01-26 20:40] LABS: BASOPHILS # (AUTO) 0.1 10^3/uL (0.0-0.1); BASOPHILS % (AUTO) 1.2 %; HGB - HEMOGLOBIN 12.2 g/dL (12.0-16.0); LYMPHOCYTES # (AUTO) 0.2 10^3/uL (1.5-3.5); MEAN CORPUSCULAR HEMOGLOBIN 35.2 pg (27.0-31.0); MEAN CORPUSCULAR HGB CONC 35.6 g/dL (32.0-36.0); MEAN CORPUSCULAR VOLUME 98.8 fL (81.0-99.0); MEAN PLATELET VOLUME 9.2 fL (7.9-10.8); MONOCYTES # (AUTO) 0.2 10^3/uL (0.0-1.0); MONOCYTES % (AUTO) 2.6 %; NEUTROPHILS # (AUTO) 6.8 10^3/uL (1.5-6.6); NEUTROPHILS % (AUTO) 88.3 %; PLT - PLATELET COUNT 65 10^3/uL (130-450); RED BLOOD COUNT 3.47 10^6/uL (4.20-5.40); WHITE BLOOD COUNT 7.7 x10^3/uL (4.8-10.8)
[2019-01-26 20:49] LABS: ALBUMIN 3.5 g/dL (3.2-5.5); BILIRUBIN,TOTAL 0.7 mg/dL (0.2-1.0); CALCIUM 8.9 mg/dL (8.5-10.3); CREATININE 0.5 mg/dL (0.4-1.0); PT - PROTHROMBIN TIME 11.5 secs (9.9-12.6); TOTAL PROTEIN 6.9 g/dL (6.7-8.2)
== END 2019-01-26 21:19 | disposition home or self-care (01) ==
LOC: ED 18:48
DX: S60.222A Contusion of left hand, initial encounter (principal); X58.XXXA Exposure to other specified factors, initial encounter; Y92.009 Unspecified place in unspecified non-institutional (private) residence as the place of occurrence of the external cause; D69.6 Thrombocytopenia, unspecified; I10 Essential (primary) hypertension; F17.200 Nicotine dependence, unspecified, uncomplicated
CPT/HCPCS: 36415; 80053; 83690; 85025; 85610; 99283

== ENCOUNTER 2019-02-10 10:31 | Outpatient (CLI) | payer MEDICAID | END 2019-02-10 10:32 | disposition short-term general hospital (02) | LOC: EMS 10:31 | PROVIDERS: ATTEND Surgery | DX: R41.82 Altered mental status, unspecified (principal); R53.1 Weakness; R06.00 Dyspnea, unspecified; R60.0 Localized edema | CPT/HCPCS: A0425; A0433; A0999 ==